=== PATIENT | male | born 2000 | race Caucasian/White ===

== ENCOUNTER 2021-03-08 20:42 | Emergency (ER) | payer OTHER | END 2021-03-08 23:01 | disposition home or self-care (01) | LOC: CSHERS 20:42 | DX: J20.9 Acute bronchitis, unspecified (principal) | CPT/HCPCS: 71046 ==

== ENCOUNTER 2021-05-29 16:02 | Emergency (ER) | payer MEDICAID | END 2021-05-29 16:57 | disposition home or self-care (01) | LOC: CSHERS 16:02 | DX: M25.512 Pain in left shoulder (principal); E78.5 Hyperlipidemia, unspecified ==

== ENCOUNTER 2022-01-27 09:58 | Emergency (ER) | payer MEDICAID ==
[2022-01-27] MEDS ORDERED: Ondansetron PF 4 MG/2 ML Vial ONE ×2 (10:21→11:15)
[2022-01-27 10:34] LABS: Bilirubin Neg (Negative); Blood, Urine Negative (Negative); Clarity Clear (Clear); Glucose, Urine (Dipstick) Normal (Negative); Ketone, Urine Negative (Negative); Leukocyte Negative (Negative); Nitrite Negative (Negative); Protein, Urine (Dipstick) Negative (Neg-Trace)
[2022-01-27 10:38] LABS: #Eosinphils 0.1 10x3/uL (0.0-0.5); #Monocytes 0.6 10x3/uL (0.0-1.1); #Neutrophils 5.7 10x3/uL (1.5-8.4); %Basophils 0.3 % (0.0-2.0); %Eosinophils 1.4 % (0.0-6.0); %Monocytes 7.3 % (0.0-10.0); %Neutrophils 65.7 % (40.0-75.0); Hemoglobin 17.2 g/dL (13.5-17.5); Mean Corpuscular HGB CONC 33.9 g/dL (32.0-36.0); Mean Corpuscular Hemoglobin 30.3 pg (27.0-33.0); Mean Corpuscular Volume 89.3 fl (81.2-95.1); Mean Platelet Volume 11.2 fl (7.4-10.4); Platelet Count 415 10x3/uL (150-450); RBC Distribution Width 12.8 % (11.5-14.5); Red Blood Cell (RBC) Count 5.68 10x6/uL (4.32-5.72); White Blood Cell (WBC) Count 8.6 10x3/uL (3.5-10.5)
[2022-01-27 11:13] LABS: ALT (SGPT) 67 U/L (8-55); AST (SGOT) 58 U/L (5-34); Alkaline Phosphatase 92 U/L (50-130); Anion Gap 15 mmol/L (10-20); Calc. Creatinine Clearance 0 mL/min (70-130); Calcium 9.8 mg/dL (7.8-10.44); Carbon Dioxide 24 mmol/L (22-29); Chloride 101 mmol/L (98-107); Estimated GFR 128; Globulin 3.3 g/dL (2.4-3.5); Glucose 100 mg/dL (70-105); Lipase 38 U/L (8-78); Potassium 4.1 mmol/L (3.5-5.1); Protein, Total 8.3 g/dL (6.0-8.3); Sodium 136 mmol/L (136-145)
[2022-01-27] MEDS ORDERED: Pantoprazole 40 MG VIAL ONE (11:15)
[2022-01-27 12:07] LABS: BUN (Urea Nitrogen) 9 mg/dL (8.9-20.6)
== END 2022-01-27 13:11 | disposition home or self-care (01) ==
LOC: CSHERS 09:58
DX: K29.70 Gastritis, unspecified, without bleeding (principal); K21.9 Gastro-esophageal reflux disease without esophagitis; E78.5 Hyperlipidemia, unspecified
CPT/HCPCS: 80053; 81003; 83690; 85025; 96374; 96375; C9113; J2405

== ENCOUNTER 2022-06-16 13:01 | Emergency (ER) | payer MEDICAID ==
[2022-06-16] MEDS ORDERED: Cephalexin 250 MG CAP ONE (13:50)
== END 2022-06-16 13:55 | disposition home or self-care (01) ==
LOC: CSHERS 13:01
DX: S61.411A Laceration without foreign body of right hand, initial encounter (principal); L03.113 Cellulitis of right upper limb; E78.5 Hyperlipidemia, unspecified; K21.9 Gastro-esophageal reflux disease without esophagitis; X58.XXXA Exposure to other specified factors, initial encounter
CPT/HCPCS: 99283